=== PATIENT | female | born 1975 | race Hispanic/Latino ===

== ENCOUNTER 2022-05-13 00:32 | Inpatient (IN) | payer SELFPAY ==
[2022-05-13 01:16] LABS: Bacteria/HPF None Seen HPF (None Seen); Bilirubin Negative (Negative); Blood, Urine Negative (Negative); Clarity Turbid (Clear); Glucose, Urine (Dipstick) Normal (Negative); Ketone, Urine 10 mg/dL (Negative); Leukocyte Negative Leu/uL (Negative); Nitrite Negative (Negative); Protein, Urine (Dipstick) 30 mg/dL (Neg-Trace); RBC/HPF 0-3 HPF (0-3); Specific Gravity, Urine 1.023 (1.002-1.036); Squamous Epithelial 0-3 HPF (0-3); WBC/HPF 0-3 HPF (0-3); Yeast-Budding 2+ HPF (None Seen); pH, Urine 7.5 (5.0-9.0)
[2022-05-13 01:21] LABS: #Lymphocytes 0.7 thou/uL (1.20-3.40); #Monocytes 0.3 thou/uL (0.11-0.59); #Neutrophils 5.7 thou/uL (1.40-6.50); %Basophils 0.1 % (0.0-1.0); %Eosinophils 0.1 % (0.0-10.0); %Monocytes 4.1 % (0.0-10.0); %Neutrophils 85.6 % (42.0-75.0); Hemoglobin 12.4 g/dL (12.0-16.0); Mean Corpuscular HGB CONC 31.6 g/dL (32.0-36.0); Mean Corpuscular Hemoglobin 30.2 pg (27.0-31.0); Mean Corpuscular Volume 95.4 fl (78.0-98.0); Mean Platelet Volume 10.5 fL (7.4-10.4); Platelet Count 178 thou/uL (130-400); RBC Distribution Width 11.8 % (11.5-14.5); Red Blood Cell (RBC) Count 4.12 mill/uL (4.20-5.40); White Blood Cell (WBC) Count 6.6 thou/uL (4.8-10.8)
[2022-05-13 01:36] LABS: ALT (SGPT) 570 U/L (8-55); AST (SGOT) 1403 U/L (5-34); Albumin 4.5 g/dL (3.5-5.0); Alkaline Phosphatase 133 U/L (40-110); Anion Gap 14 mmol/L (10-20); BUN (Urea Nitrogen) 15 mg/dL (7.0-18.7); Bilirubin, Total 2.1 mg/dL (0.2-1.2); Calc. Creatinine Clearance 0 mL/min (70-130); Carbon Dioxide 26 mmol/L (22-29); Chloride 102 mmol/L (98-107); Estimated GFR 103; Globulin 3.3 g/dL (2.4-3.5); Glucose 156 mg/dL (70-105); Potassium 3.7 mmol/L (3.5-5.1); Protein, Total 7.8 g/dL (6.0-8.3); Sodium 138 mmol/L (136-145)
[2022-05-13 01:45] LABS: BHCG - Serum Negative (NEGATIVE); Pregs Control Background? CLEAR/WHITE (CLR/WHITE); Pregs Control Bar Appear? YES (CONTROL BAR)
[2022-05-13] MEDS ORDERED: Morphine 4 MG/ML VIAL ONE (01:56)
[2022-05-13] MEDS ORDERED: Ondansetron PF 4 MG/2 ML Vial ONE ×2 (02:07→10:45)
[2022-05-13] MEDS ORDERED: Bupivacaine/Epinephrine 0.25% 30 ML VIAL ONE (08:53)
[2022-05-13] MEDS ORDERED: Iopamidol 30 ML ONE (08:53)
[2022-05-13] MEDS ORDERED: Sodium Chloride 0.9% 100 ML ONE (09:13)
[2022-05-13] MEDS ORDERED: cefOXitin 2 GM VIAL ONE (09:13)
[2022-05-13] MEDS ORDERED: Promethazine HCl 25 MG/ML VIAL ONE (09:27)
[2022-05-13] MEDS ORDERED: fentaNYL Citrate/PF 100 MCG/2 ML SYRINGE ONE (09:27)
[2022-05-13] MEDS ORDERED: Glycopyrrolate 0.2 MG/ML 5 ML SYRINGE ONE (10:45)
[2022-05-13] MEDS ORDERED: Rocuronium Bromide 10 MG/ML (10ML VIAL) ONE (10:45)
[2022-05-13] MEDS ORDERED: ePHEDrine 50 MG/ML VIAL ONE (10:45)
[2022-05-13] MEDS ORDERED: NEOSTIGMINE 3 MG/3 ML SYR 3 MG/3 ML SYRINGE ONE (10:45)
[2022-05-13] MEDS ORDERED: Ketorolac Tromethamine 30 MG/ML VIAL ONE (10:45)
[2022-05-13] MEDS ORDERED: Dexamethasone 20 MG/5 ML VIAL ONE (10:45)
[2022-05-13] MEDS ORDERED: Propofol 1,000 MG/100 ML VIAL IV ONE (10:45)
[2022-05-13] MEDS ORDERED: Promethazine HCl 25 MG/ML VIAL IVPB PRN (12:00)
[2022-05-13] MEDS ORDERED: Ondansetron HCl/PF 4 MG/2 ML Vial IVP PRN (12:00)
[2022-05-13] MEDS ORDERED: HYDROmorphone 2 MG/ML VIAL SLOW IVP PRN (12:00)
[2022-05-13] MEDS ORDERED: PACU-Morphine 4MG/ML VIAL SLOW IVP PRN (12:00)
[2022-05-13] MEDS ORDERED: Promethazine HCl 25 MG/ML VIAL IM PRN ×2 (12:00→12:56)
[2022-05-13] MEDS ORDERED: FENTANYL 50 MCG/ML VIAL 50 MCG/ML VIAL ONE (12:14)
[2022-05-13] MEDS ORDERED: Mag-Al 1200 mg/1200 mg/30 ML UDCUP PO PRN (12:56)
[2022-05-13] MEDS ORDERED: Dextrose 5% in Water 1,000 ML IV PRN (12:56)
[2022-05-13] MEDS ORDERED: Calcium Carbonate 500 MG ChewTAB PO PRN (12:56)
[2022-05-13] MEDS ORDERED: Dextrose 50% Abboject 50 ML SYRINGE SLOW IVP PRN (12:56)
[2022-05-13] MEDS ORDERED: Ondansetron PF 4 MG/2 ML Vial IVP PRN (12:56)
[2022-05-13] MEDS ORDERED: hydrALAZINE 20 MG/ML VIAL SLOW IVP PRN (12:56)
[2022-05-13] MEDS: Lactated Ringer's 1,000 ML IV SCH ×2 (17:10→18:22)
[2022-05-13] MEDS: HYDROcodone/Acetaminophen 7.5/325 mg Tablet PO PRN (18:19)
[2022-05-13] MEDS: cefOXitin 2 GM in Sodium Chloride 0.9% 100 ML IVPB SCH (20:25)
[2022-05-13] MEDS: Famotidine 20 MG TAB PO SCH (20:25)
[2022-05-13] MEDS: Famotidine/PF 20 mg/2ml Vial SLOW IVP SCH (20:33)
[2022-05-14] MEDS: HYDROcodone/Acetaminophen 7.5/325 mg Tablet PO PRN ×2 (05:16→21:50)
[2022-05-14] MEDS: cefOXitin 2 GM in Sodium Chloride 0.9% 100 ML IVPB SCH ×3 (05:17→21:49)
[2022-05-14 06:13] LABS: SARS-CoV-2 NAA Rapid Test Not Detected (NotDetected)
[2022-05-14 06:26] LABS: #Lymphocytes 1.2 thou/uL (1.20-3.40); #Monocytes 0.7 thou/uL (0.11-0.59); #Neutrophils 7.6 thou/uL (1.40-6.50); %Basophils 0.2 % (0.0-1.0); %Lymphocytes 12.9 % (21.0-51.0); %Monocytes 7.3 % (0.0-10.0); %Neutrophils 79.6 % (42.0-75.0); Hemoglobin 10.4 g/dL (12.0-16.0); Mean Corpuscular HGB CONC 32.2 g/dL (32.0-36.0); Mean Corpuscular Hemoglobin 31.2 pg (27.0-31.0); Mean Corpuscular Volume 96.8 fl (78.0-98.0); Mean Platelet Volume 10.7 fL (7.4-10.4); Platelet Count 149 thou/uL (130-400); RBC Distribution Width 12.1 % (11.5-14.5); Red Blood Cell (RBC) Count 3.35 mill/uL (4.20-5.40); White Blood Cell (WBC) Count 9.6 thou/uL (4.8-10.8)
[2022-05-14 06:42] LABS: ALT (SGPT) 557 U/L (8-55); AST (SGOT) 297 U/L (5-34); Albumin 3.6 g/dL (3.5-5.0); Alkaline Phosphatase 114 U/L (40-110); Anion Gap 12 mmol/L (10-20); BUN (Urea Nitrogen) 8 mg/dL (7.0-18.7); Bilirubin, Total 1.5 mg/dL (0.2-1.2); Calc. Creatinine Clearance 78 mL/min (70-130); Calcium 8.5 mg/dL (7.8-10.44); Carbon Dioxide 26 mmol/L (22-29); Chloride 106 mmol/L (98-107); Estimated GFR 64; Globulin 2.6 g/dL (2.4-3.5); Glucose 119 mg/dL (70-105); Lipase 18 U/L (8-78); Potassium 3.6 mmol/L (3.5-5.1); Protein, Total 6.2 g/dL (6.0-8.3); Sodium 140 mmol/L (136-145)
[2022-05-14] MEDS: Lactated Ringer's 1,000 ML IV SCH ×2 (07:58→19:00)
[2022-05-14] MEDS: Famotidine/PF 20 mg/2ml Vial SLOW IVP SCH ×2 (07:59→21:49)
[2022-05-14] MEDS: Famotidine 20 MG TAB PO SCH ×2 (08:05→23:43)
[2022-05-14] MEDS: Morphine 4 MG/ML VIAL SLOW IVP PRN ×2 (09:17→11:57)
[2022-05-14] MEDS ORDERED: Indomethacin 50 MG SUPP ONE (15:16)
[2022-05-14] MEDS ORDERED: Iopamidol 30 ML ONE ×2 (15:17→16:27)
[2022-05-14] MEDS ORDERED: Levofloxacin 500 mg/D5W 100 ml Premix Bag ONE (15:26)
[2022-05-14] MEDS ORDERED: SUGAMMADEX SODIUM 200 MG/2 ML VIAL ONE (15:27)
[2022-05-14] MEDS ORDERED: fentaNYL Citrate/PF 100 MCG/2 ML SYRINGE ONE (15:27)
[2022-05-14] MEDS ORDERED: Rocuronium Bromide 10 MG/ML (10ML VIAL) ONE (15:30)
[2022-05-14] MEDS ORDERED: PROPOFOL 200 MG/20 ML VIAL ONE (15:30)
[2022-05-14] MEDS ORDERED: Ondansetron PF 4 MG/2 ML Vial ONE (15:30)
[2022-05-14] MEDS ORDERED: Dexamethasone 20 MG/5 ML VIAL ONE (15:30)
[2022-05-14] MEDS ORDERED: Metoclopramide HCl 10 MG/2 ML VIAL ONE (15:30)
[2022-05-14] MEDS ORDERED: Succinylcholine 200 MG/10 ml SYRINGE FS ONE (15:30)
[2022-05-14] MEDS ORDERED: Meperidine HCl/PF 25 MG/ML VIAL SLOW IVP PRN (17:08)
[2022-05-14] MEDS ORDERED: Promethazine HCl 25 MG/ML VIAL IVPB PRN (17:08)
[2022-05-14] MEDS ORDERED: Morphine Sulfate 2 MG/ML SYRINGE SLOW IVP PRN (17:08)
[2022-05-14] MEDS ORDERED: Promethazine HCl 25 MG/ML VIAL IM PRN (17:08)
[2022-05-14] MEDS ORDERED: HYDROmorphone 2 MG/ML VIAL SLOW IVP PRN (17:08)
[2022-05-14] MEDS ORDERED: Ondansetron HCl/PF 4 MG/2 ML Vial IVP PRN (17:08)
[2022-05-15] MEDS: Lactated Ringer's 1,000 ML IV SCH ×2 (03:27→10:58)
[2022-05-15] MEDS: cefOXitin 2 GM in Sodium Chloride 0.9% 100 ML IVPB SCH (03:27)
[2022-05-15 08:35] VITALS: BP 116/72; TEMP 97.8
[2022-05-15] MEDS: Famotidine/PF 20 mg/2ml Vial SLOW IVP SCH (09:08)
[2022-05-15] MEDS: Famotidine 20 MG TAB PO SCH (09:13)
[2022-05-15] MEDS: HYDROcodone/Acetaminophen 7.5/325 mg Tablet PO PRN (11:35)
== END 2022-05-15 13:15 | disposition home or self-care (01) | DRG 419 ==
LOC: ERS 00:32 → SJJU 06:33 → OBSVTOIN 05-15 12:34
PROVIDERS: ADMIT Surgery; ATTEND Surgery
PROC: 0FT44ZZ Resection of Gallbladder, Percutaneous Endoscopic Approach (ICD-10-PCS; principal; 2022-05-13)
PROC: BF101ZZ Fluoroscopy of Bile Ducts using Low Osmolar Contrast (ICD-10-PCS; 2022-05-13)
PROC: 0FC98ZZ Extirpation of Matter from Common Bile Duct, Via Natural or Artificial Opening Endoscopic (ICD-10-PCS; 2022-05-14)
PROC: 0F798DZ Dilation of Common Bile Duct with Intraluminal Device, Via Natural or Artificial Opening Endoscopic (ICD-10-PCS; 2022-05-14)
DX: K80.42 Calculus of bile duct with acute cholecystitis without obstruction (principal); Z20.822 Contact with and (suspected) exposure to COVID-19
CPT/HCPCS: 36415; 47532; 74330; 76705; 80053; 81003; 81015; 83690; 84703; 85025; 88304; 96361; 96374; 96375; 96376; C1889; C2617; G0378; J0694; J1100; J1610; J1885; J1956; J2270; J2405; J2550; J2704; J2765; J3010; J3490; J7120; Q9967; S0028; U0002

== ENCOUNTER 2022-07-04 07:58 | Inpatient (IN) | payer SELFPAY ==
[2022-07-03 10:48] VITALS: BMI 30.3
[2022-07-04] MEDS ORDERED: Midazolam HCl 2 mg/2 ml Vial ONE (09:26)
[2022-07-04] MEDS ORDERED: Fentanyl 100 MCG/2 ML VIAL ONE (09:34)
[2022-07-04] MEDS ORDERED: Famotidine/PF 20 mg/2ml Vial ONE (09:34)
[2022-07-04] MEDS ORDERED: Iopamidol 30 ML ONE (10:11)
[2022-07-04] MEDS ORDERED: Dexamethasone 20 MG/5 ML VIAL ONE (10:20)
[2022-07-04] MEDS ORDERED: Succinylcholine Chloride 100 MG/5 ML SYRINGE FS ONE (10:20)
[2022-07-04] MEDS ORDERED: Lidocaine 1% PF 5 ML VIAL ONE (10:20)
[2022-07-04] MEDS ORDERED: Rocuronium Bromide 10 MG/ML (10ML VIAL) ONE (10:20)
[2022-07-04] MEDS ORDERED: PROPOFOL 200 MG/20 ML VIAL ONE (10:20)
[2022-07-04] MEDS ORDERED: Ondansetron PF 4 MG/2 ML Vial ONE (10:20)
== END 2022-07-04 13:40 | disposition home or self-care (01) | DRG 446 ==
LOC: SDC 07:58 → SURG A 08:26
PROVIDERS: ADMIT Internal Medicine Gastroenterology; ATTEND Internal Medicine Gastroenterology
PROC: 0F798DZ Dilation of Common Bile Duct with Intraluminal Device, Via Natural or Artificial Opening Endoscopic (ICD-10-PCS; principal; 2022-07-04)
DX: K80.50 Calculus of bile duct without cholangitis or cholecystitis without obstruction (principal)
CPT/HCPCS: 74330; C1725; J1100; J2250; J2405; J2704; J3010; Q9967; S0028